=== PATIENT | male | born 1960 | race Caucasian/White ===

== ENCOUNTER → 2017-01-15 | Outpatient (CLI) | payer OTHER ==
[~2017-01-15] MED LIST: GADOBUTROL 10 ML VIAL IVP ONE
== END ==
LOC: FIMAGING 06:55
PROVIDERS: ATTEND Urology
DX: R97.20 Elevated prostate specific antigen [PSA] (principal); R31.9 Hematuria, unspecified
CPT/HCPCS: A9585

== ENCOUNTER 2017-08-22 05:43 | Inpatient (IN) | payer SELFPAY ==
[2017-08-22] MEDS ORDERED: cefOXitin SODIUM 2 GM in NS 100 ML IV ONE (06:32)
[2017-08-22] MEDS ORDERED: LR 1,000 ML IV ONE (06:32)
[2017-08-22] MEDS ORDERED: fentaNYL 100 MCG/2 ML INJ ONE ×3 (07:11→12:02)
[2017-08-22] MEDS ORDERED: MIDAZOLAM 2 MG/2 ML VIAL ONE (07:11)
[2017-08-22] MEDS ORDERED: PROPOFOL/EMULSION 500 MG/50 ML BOTTLE IV ONE ×2 (07:12→07:23)
[2017-08-22] MEDS ORDERED: BUPIVACAINE/EPI 0.5% 30 ML SDV ONE (07:14)
[2017-08-22] MEDS ORDERED: DEXMEDETOMIDINE HCL 200 MCG/2 ML VIAL IV ONE (07:15)
[2017-08-22] MEDS ORDERED: DEXAMETHASONE 4 MG/ML VIAL ONE (07:25)
[2017-08-22] MEDS ORDERED: METOCLOPRAMIDE 10 MG/2 ML VIAL ONE (07:25)
[2017-08-22] MEDS ORDERED: ROCURONIUM 100 MG/10 ML VIAL ONE (07:25)
[2017-08-22] MEDS ORDERED: ONDANSETRON 4 MG/2 ML VIAL ONE (07:25)
[2017-08-22] MEDS ORDERED: RANITIDINE 50 MG/2 ML VIAL ONE (07:25)
[2017-08-22] MEDS ORDERED: KETOROLAC 30 MG/1 ML SDV ONE (07:25)
[2017-08-22] MEDS ORDERED: LIDOCAINE 2% 5 ML SDV ONE (07:25)
--- NOTE | 2017-08-22 07:30 | PDHPUP ---
History & Physical Update H&P update statement: This history and physical update is based on an assessment of the patient which was completed after admission or registration (within 24 hours), but prior to the surgery/procedure. H&P update: no change in patient's condition since H&P completed
--- NOTE | 2017-08-22 08:00 | PDANEPAE ---
ANE Past Medical History - Cardiovascular History Hx Hypertension: No Hx Arrhythmias: No Hx Chest Pain: No Hx Coronary Artery / Peripheral Vascular Disease: No Hx CHF / Valvular Disease: No Hx Palpitations: No - Pulmonary History Hx COPD: No Hx Asthma/Reactive Airway Disease: No Hx Recent Upper Respiratory Infection: No Hx Oxygen in Use at Home: No Hx Sleep Apnea: No Sleep Apnea Screening Result - Last Documented: Negative - Neurologic History Hx Cerebrovascular Accident: No Hx Seizures: No Hx Dementia: No - Endocrine History Hx Diabetes: No - Renal History Hx Renal Disorders: Yes Renal History Comment: HX OF STONES - Liver History Hx Hepatic Disorders: No - Neurological & Psychiatric Hx Hx Neurological and Psychiatric Disorders: No - Cancer History Hx Cancer: Yes Cancer History Comment: PROSTATE - Congenital Disorder History Hx Congenital Disorders: No - Other Health History Other Health History: GENITAL WARTS. DVT POST INJURY 02/2013 - Chronic Pain History Chronic Pain: Yes (LT SIDE WHILE SITTING) - Surgical History Prior Surgeries: RT ING HERNIA. REMVL KIDNEY STONE 09/2016 IN [place]. JANEL KNEE SCOPE ANE Review of Systems Review of Systems: - Exercise capacity METS (RN): 6 METS ANE Patient History - Allergies Allergies/Adverse Reactions: No Known Allergies Allergy (Unverified 03/12/13 18:27) - NPO status NPO Since - Liquids (Date): 08/21/17 NPO Since - Liquids (Time): 23:00 NPO Since - Solids (Date): 08/21/17 NPO Since - Solids (Time): 11:30 - Smoking Hx Smoking Status: Never smoked - Family Anes Hx Family Hx Anesthesia Complications: NEG ANE Labs/Vital Signs - Vital Signs Blood Pressure: 161/91 Heart Rate: 52 Respiratory Rate: 15 O2 Sat (%): 96 Height: 182.88 cm Weight: 69.853 kg ANE Physical Exam - Airway Mallampati Score: Class 1 Mouth exam: normal dental/mouth exam - Pulmonary Pulmonary: no respiratory distress, no rales or rhonchi, clear to auscultation - Cardiovascular Cardiovascular: regular rate and rhythym, no murmur, rub, or gallop - ASA Status ASA Status: II ANE Anesthesia Plan Anesthesia Plan: general endotracheal anesthesia
[2017-08-22] MEDS ORDERED: SUGAMMADEX SODIUM 200 MG/2 ML VIAL IVP ONE (09:16)
[2017-08-22] MEDS ORDERED: GLYCOPYRROLATE 0.2 MG/1 ML VIAL ONE (09:16)
[2017-08-22] MEDS ORDERED: THROMBIN(HUM PLAS)/FIBRINOG/CA 5 ML VIAL TP ONE (09:16)
[2017-08-22] MEDS ORDERED: ROCURONIUM 50 MG/5 ML VIAL ONE (09:59)
[2017-08-22] MEDS ORDERED: PROMETHAZINE HCL 25 MG/ML INJ IVP PRN ×2 (10:34→11:04)
[2017-08-22] MEDS ORDERED: ALBUTEROL 3 ML DEYVIAL IH PRN (10:34)
[2017-08-22] MEDS ORDERED: DEXAMETHASONE 4 MG/ML VIAL IVP PRN (10:34)
[2017-08-22] MEDS ORDERED: LR 500 ML IV PRN (10:34)
[2017-08-22] MEDS ORDERED: ONDANSETRON 4 MG/2 ML VIAL IVP PRN ×2 (10:34→11:04)
[2017-08-22] MEDS ORDERED: NALOXONE HCL 0.4 MG/ML INJ IVP PRN ×2 (10:34→22:15)
[2017-08-22] MEDS ORDERED: METOCLOPRAMIDE 10 MG/2 ML VIAL IVP PRN (10:34)
[2017-08-22] MEDS ORDERED: MEPERIDINE 25 MG/0.5 ML AMP IVP PRN (10:34)
--- NOTE | 2017-08-22 11:02 | POSTOPPROG ---
Post Op Note Date of Operation: 08/22/17 Surgeon: Fabi Aquino (# [id number]) [place] Supervisor: Patti Ohara Anesthesia: GET(General Endotracheal) Pre-op Diagnosis: Prostate cancer Post-op Diagnosis: Prostate cancer Procedure: Robotic radical prostatectomy Findings: See op note Inf/Abcess present in the surg proc area at time of surgery?: No EBL: 50-100 (50 cc) Complications: None Drains: Yahir Mejia (10 Flat) Specimen(s): Prostate + SV's
[2017-08-22] MEDS ORDERED: LIDOCAINE 2% JELLY 5 ML TUBE TP PRN (11:04)
[2017-08-22] MEDS ORDERED: KETOROLAC 30 MG/1 ML SDV IVP ONE (11:04)
[2017-08-22] MEDS: fentaNYL 100 MCG/2 ML INJ IVP PRN ×4 (11:20→12:03)
--- NOTE | 2017-08-22 11:50 | POSTANESTH ---
Post Anesthetic Evaluation Cardiovascular Status: Normal, Stable, Similar to Pre-Op Cond Respiratory Status: Normal, Stable, Similar to Pre-op Cond. Level of Consciousness/Mental Status: Unconscious Pain Control: Adequate, Prn Tx Ordered Nausea/Vomiting Control: Adequate, Prn Tx Ordered Complications Possibly Related to Anesthesia: None Noted
--- NOTE | 2017-08-22 12:18 | GOP ---
[f rep st] OPERATIVE REPORT DATE OF OPERATION: 08/22/2017 SURGEON: Fabi Aquino MD BUSINESS OBJECTS DEVELOPER: Jessica Ohara CFA. ANESTHESIA: General endotracheal. PREOPERATIVE DIAGNOSIS: Prostate adenocarcinoma. POSTOPERATIVE DIAGNOSIS: Prostate adenocarcinoma. PROCEDURE PERFORMED: Robotically-assisted laparoscopic radical prostatectomy. FINDINGS: Grossly organ-confined prostate cancer. SPECIMENS: Prostate with seminal vesicles. ESTIMATED BLOOD LOSS: Approximately 50 cc. INDICATIONS: This gentleman was found to have prostate adenocarcinoma. He has opted for radical prostatectomy as definitive therapy. The indications for the procedures, as well as potential risks and complications were discussed with the patient preoperatively. He appeared to understand, his questions were answered, and he wished to proceed. Written informed surgical consent was thereafter obtained. DESCRIPTION OF PROCEDURE: The patient was brought to the operating room and administered general endotracheal anesthesia. He was carefully placed in the low lithotomy position on the operating room table with Garfield stirrups. The abdomen and genitalia were sterilely prepped and draped in standard fashion utilizing Ioban. An 18-Honduran Mendoza catheter was placed without complication to bag drainage and left sterilely on the field. Intraabdominal access was gained in the midline, just above the umbilicus, with a Veress needle. The abdomen was insufflated to 15 mmHg which was the pressure maintained throughout the remainder of the case. A 12 mm laparoscopic port was placed at this location. The abdomen was carefully inspected with a 12 mm 0 degree robotic camera. No significant intraabdominal abnormalities were appreciated. My remaining port sites were then marked, which were as follows: An 8 mm robotic port placed approximately 2.5 cm below the umbilicus and 12 cm lateral to the midline in the left lower quadrant, an 8 mm robotic port placed in the right lower quadrant 2.5 cm below the umbilicus and 7.5 cm lateral to the midline, a third 8 mm robotic port placed 8 cm lateral to the right lower quadrant port and nearly in the same transverse line as the umbilicus, and 12 mm assistant attorney general port placed in the left upper quadrant along the lateral edge of the rectus muscle below the costal margin. All these ports were placed under direct vision without complication. The patient was then placed in approximately 27 degree Trendelenburg position. The robot was docked between the patient's legs. The appropriate robotic arms were connected to the respective ports. The 0 degree 12 mm robotic camera was used throughout the case. I then left the patient's bedside and entered the surgeon's robotic console. He had a few adhesions between the mesentery and the left lower quadrant anterior abdominal wall. These were sharply divided with monopolar scissors. The pelvis was carefully inspected. The prerectal space could be easily visualized. An incision was made through the posterior peritoneum in the prerectal space in a transverse fashion approximately 1.5-2 cm above the rectum in the midline. A gentle spreading motion was used to identify the location of the seminal vesicles and the vas deferens through this incision. These structures were carefully dissected free from the surrounding structures. The tips to the seminal vesicles were ligated with Hem-O-darrel clips bilaterally. The vas deferens were transected with monopolar scissors, approximately 3 cm from their insertion into the base of the prostate. Once the seminal vesicles and vas deferens were free, a transverse incision was made through Denonvilliers fascia, just posterior to the prostate in the midline, and this incision was carried bilaterally. I gently and bluntly dissected the prostate anteriorly from the rectum posteriorly as far towards the prostatic apex as possible. This completed the posterior dissection. Hemostasis was confirmed posteriorly at this point. I then turned my attention to the anterior dissection. The anterior peritoneum was incised lateral to the obliterated umbilical ligaments high along the anterior abdominal wall. This incision through the peritoneum was carried in a cephalad fashion back to the intersection with the vas deferens and spermatic cord bilaterally. The lateral pelvic spaces were then gently developed bluntly until the endopelvic fascia was seen bilaterally. The obliterated umbilical ligaments were then ligated with bipolar cautery and divided with scissors bilaterally. This incision through the obliterated umbilical ligament ligaments was connected in the midline with a transverse incision through the anterior peritoneum. This allowed entrance into the retropubic space of Retzius. The bladder was then dropped. Once the endopelvic fascia was identified bilaterally, an incision was made through it along the mid aspect of the prostate laterally with scissors. This incision through the endopelvic pelvic fascia was carried upwards towards the prostatic apex and back towards the prostatic base while staying lateral to the prostate. The levator ani muscles were carefully teased off the prostate with gentle blunt dissection bilaterally. The dorsal vein complex was then carefully dissected and visualized. The puboprostatic ligaments above the dorsal vein were transected sharply with scissors. An 0 Vicryl stick tie was then used to ligate the dorsal vein complex while staying distal to the prostatic apex and above the urethra. A slip knot technique was utilized. Two separate 0 Vicryl sutures were utilized at this location. I then turned my attention to the bladder neck dissection. The location of the bladder neck was visualized. Using monopolar scissors dissection, I then began my anterior dissection of the prostate off the anterior bladder. I continued this dissection laterally and more deeply until the bladder neck was visualized. I attempted to perform a bladder neck sparing dissection while not compromising the cancer aspect of the operation. The previously placed catheter was then visualized after transecting the anterior urethra and was pulled up in order to visualize the back wall of the urethra, which was then transected as well. I then continued my dissection further posteriorly until the previously dissected seminal vesicles and vas deferens were identified. They were pulled up anteriorly. I then continued to dissect the base of the prostate off the posterior bladder bilaterally. The rectum was then carefully mobilized with gentle blunt dissection out of harm's way all the way to the level of the prostatic apex. I then performed the left lateral prostatic dissection next. A fairly aggressive nerve-sparing procedure was performed on this left side with cold scissors dissection. The left prostatic pedicle was then ligated with a series of Hem O Darrel clips and divided with scissors. The remaining prostatic attachments along the left lateral aspect were then dissected free from the pelvic fascia to the level of the prostatic apex. I then turned my attention to dissecting the right side. A less aggressive nerve-sparing procedure was performed on this side due to the extent of cancer being present in the right base and mid gland, with perineural invasion noted on preoperative biopsies at the right base. I did perform an interfascial nerve -sparing procedure on this side using cold scissors dissection. The prostatic pedicle was then ligated with a series of Hem O lock clips and divided with scissors. The remaining posterior attachments were then mobilized with gentle blunt dissection on this right side to keep the rectum out of harm's way. Any remaining lateral attachments between the prostate and the pelvic fascia were then ligated with scissors dissection up to the level of the prostatic apex. The apical dissection was then performed with monopolar scissors dissection. The urethra was identified and as much length to the urethra was spared as possible while not compromising the apical margin. After transecting the urethra, the underlying rectourethralis muscle was divided sharply with scissors. The prostate was then completely free and placed in the upper abdomen to be later retrieved in a specimen bag. It should be noted there was no obvious gross extraprostatic extension of cancer identified. There was some bleeding noted from the dorsal vein complex at this point, and this was ligated successfully with an additional 0 Vicryl stick tie while staying above the urethra. The posterior plate was then reconstructed with a running 3-0 Vicryl V -Loc suture by approximating the rectourethralis muscle at the level of the urethral stump to the vesicovisceral fascia along the posterior bladder. Once this was completed, the vesicourethral anastomosis was completed with a running 3-0 Monocryl double-armed suture. This was done in a gukniy-xe-huhxni approximating fashion. Once the anastomosis was completed, a new 18-Honduran Mendoza catheter was placed in the bladder and 20 cc of sterile water was placed in the balloon. The catheter was then irrigated and no significant clots were seen within the bladder. There was no fluid leakage seen from the anastomosis either. The intraabdominal pressure was then temporarily decreased to 5 mmHg and no bleeding was identified. Nonetheless, I did place some Evicel over the ligated dorsal vein complex, as well as the regions of the neurovascular bundles bilaterally. A 10 mm specimen bag was then used to secure the specimen and it was ultimately brought out through the supraumbilical midline port. A 10 flat Yahir-Mejia drain was placed in the pelvis and brought out through the left lower quadrant robotic port site. It was ultimately secured to the skin with a 2-0 silk suture and connected to bulb suction. This completed the robotic portion of the procedure. I did not feel that pelvic lymphadenectomy was necessary due to the patient's preoperative Nina 3 + 3 cancer that was stage T1c with a PSA less than 10. I then returned to the patient's bedside. The anterior rectus fascia at the location of the 12 mm assistant attorney general port site was reapproximated with an 0 Vicryl suture and the fascial closure device. All the remaining ports were then removed. The supraumbilical incision was extended slightly in order to allow for delivery of the prostate within the specimen bag. The anterior rectus fascia at this location was then reapproximated in a transverse running fashion with 0 Vicryl suture. All the incisions were anesthetized with a total of 30 cc of 0.5% Marcaine with epinephrine. The skin edges were then reapproximated with a running 4-0 Monocryl suture in a subcuticular fashion. A Biopatch followed by Tegaderm were placed along the SONIYA site. The catheter was kept to bag drainage. The patient was awakened, extubated, transferred to his bed, then taken to the recovery room. He tolerated the procedure well overall. COMPLICATIONS: None. DISPOSITION: He was transferred to the recovery room in stable condition. /[id number]/MODL MTDD
--- NOTE | 2017-08-22 13:46 | PDMN ---
Medical Necessity Medical necessity: [facility] [place]; S960 prostatectomy, radical 1 day INPT only : Robotic assist Lap radical prostatectomy
[2017-08-22] MEDS: D5W 1/2 NS 1,000 ML IV SCH (14:51)
[2017-08-22] MEDS: cefOXitin SODIUM 2 GM in NS 100 ML IV SCH (18:44)
[2017-08-22] MEDS: KETOROLAC 15 MG/1 ML SDV IVP SCH (18:45)
[2017-08-22] MEDS ORDERED: HYDROmorphONE/DILAUDID 6 MG/30 ML PCA IV PRN (22:15)
[2017-08-23] MEDS: cefOXitin SODIUM 2 GM in NS 100 ML IV SCH ×3 (00:04→13:29)
[2017-08-23] MEDS: KETOROLAC 15 MG/1 ML SDV IVP SCH ×4 (00:05→20:04)
[2017-08-23] MEDS: D5W 1/2 NS 1,000 ML IV SCH ×2 (00:05→08:32)
--- NOTE | 2017-08-23 09:32 | SOAPPROG ---
SOAP Progress Note Assessment/Plan: Assessment: POD 1 s/p robotic radical prostatectomy - doing well. Plan: 1. Continue postop care. 2. Possible d/c home later today. Subjective: No complaints except for some abdominal spasms. Tolerated CLD this AM. Objective: Vital Signs Temp Pulse Resp BP Pulse Ox 36.6 C 56 L 16 145/85 H 95 08/23/17 07:48 08/23/17 07:48 08/23/17 07:48 08/23/17 07:48 08/23/17 07:48 Laboratory Results 08/23/17 04:02 08/23/17 04:02 08/22/17 08/23/17 08/24/17 05:59 05:59 05:59 Intake Total 2505 Output Total 1420 Balance 1085 Physical Exam - Physical Exam General Appearance: WD/WN, alert, no apparent distress Abdomen: soft (minimally tender; incisions c/d/i; minimal distention) Male Genitalia: other (urine clearing via Mendoza) Skin: normal color, warm/dry Extremities: non-tender, normal inspection Neuro/Psych: alert, normal mood/affect, oriented x 3 ICD10 Worksheet Patient Problems: Problems Problem Status Onset Prostate cancer Acute
--- NOTE | 2017-08-23 11:21 | ASMTCMCOM ---
CM Note CM Note Notes: CM reviewed chart for D/C planning. Pt is a 56 y/o male who was hospitalized due to needing a radical prostatectomy. He will possibly be d/c'ed later today.Pt lived independently prior to admission. No CM needs anticipated. CM will follow in case needs change. D/C Plan: Independent Date Signed: 08/23/2017 11:20 AM Electronically Signed By:Elena Garcia
[2017-08-23] MEDS: HYDROCODONE/APAP 5/325 TAB PO PRN ×2 (15:45→21:30)
[2017-08-24] MEDS: KETOROLAC 15 MG/1 ML SDV IVP SCH (01:19)
[2017-08-24] MEDS: HYDROCODONE/APAP 5/325 TAB PO PRN ×2 (05:55→13:07)
--- NOTE | 2017-08-24 08:18 | SOAPPROG ---
SOMARBELLA Progress Note Assessment/Plan: Assessment: Prostate cancer s/p robotic radical prostatectomy Plan: 08/24/17 08:17 Patient is doing much better and is ready for discharge. Subjective: Pt feels much better, has been walking and having flatus. Pain is minimal. Objective: Vital Signs Temp Pulse Resp BP Pulse Ox 36.5 C 52 L 16 137/76 H 93 08/24/17 05:19 08/24/17 05:19 08/24/17 05:19 08/24/17 05:19 08/24/17 05:19 Laboratory Results 08/23/17 04:02 08/23/17 04:02 08/23/17 08/24/17 08/25/17 05:59 05:59 05:59 Intake Total 2505 1100 Output Total 1420 2665 Balance 1085 -1565 Physical Exam - Physical Exam General Appearance: no apparent distress Abdomen: normal bowel sounds, non-tender, soft ICD10 Worksheet Patient Problems: Problems Problem Status Onset Prostate cancer Acute
[2017-08-24 08:23] VITALS: BP 144/89
--- NOTE | 2017-08-24 09:27 | ASDISCHSUM ---
Discharge Information Plan Status:Home with No Needs Medically Cleared to Leave:08/24/2017 Discharge Date:08/24/2017 CM D/C Disposition:Home, Routine, Self-Care ADT D/C Disposition:Home, Routine, Self-Care Projected Discharge Date:08/24/2017 Transportation at D/C: Discharge Delay Reason: Follow-Up Date:08/24/2017 Discharge Slot: Final Diagnosis: Placement Information Patient Contact Information Contact Name:JOEL Relationship: Address: Work Phone: City: [facility] Phone: State/[place] Code: Email: Financial Information Financial Class:Self-Pay Primary Plan Desc:SELF PAY Primary Plan Number: Secondary Plan Desc: Secondary Plan Number: Assessment Information LACE LACE Length of stay for Answers: 2 days current admission Acuity / Level of Answers: Yes Care: Did the patient have an inpatient admission? Comorbidities - select Answers: Any tumor (including all that apply lymphoma or leukemia) Opioid dependence / Chronic pain # of Emergency department Answers: 0 visits in the last 6 months Score: 11 Date Signed: 08/24/2017 09:25 AM Electronically Signed By:Anabel Horan RN [facility] CM Progress Note CM Note CM Note Notes: CM reviewed chart for D/C planning. Pt is a 56 y/o male who was hospitalized due to needing a radical prostatectomy. He will possibly be d/c'ed later today.Pt lived independently prior to admission. No CM needs anticipated. CM will follow in case needs change. D/C Plan: Independent Date Signed: 08/23/2017 11:20 AM Electronically Signed By:Elena Garcia Case Management Discharge Plan Note Case Management Discharge Discharge Order Complete? Answers: Yes Patient to Obtain Answers: Independently Medications Discharge Comments Notes: 08/24/2017 Case Management Note Pt to discharge independent with follow up as directed. Date Signed: 08/24/2017 09:25 AM Electronically Signed By:Anabel Horan RN Intervention Information
--- NOTE | 2017-08-27 07:49 | GDS ---
[f rep st] DISCHARGE SUMMARY DISCHARGE PHYSICIAN: Fabi Aquino MD REASON FOR ADMISSION: Prostate cancer. HISTORY OF PRESENT ILLNESS: The patient is a 56-year-old gentleman with history of prostate cancer. He was admitted for a robotic-assisted radical prostatectomy. Postoperatively, he was admitted for observation. HOSPITAL COURSE: The patient did well overall; however, he is by himself and was not ambulating suff iciently for discharge on postoperative day #1; however, over the 2nd hospital day, the patient was d oing much better. He was tolerating a regular diet, having flatus, walking outside without too much pain. He was having no fevers or chills, and at this point, was felt ready for discharge. DISCHARGE MEDICATIONS: Include: Reserve and Cipro to be taken prior to catheter removal. DISCHARGE INSTRUCTIONS: 1. He is to limit vigorous activities. 2. He has a followup appointment with Dr. Aquino's office for catheter removal. COMPLICATIONS: There were no complications during this hospital stay. /[id number]/MODL
== END 2017-08-24 13:42 | disposition home or self-care (01) | DRG 708 ==
LOC: F3N 05:43 → F1N 12:26
PROVIDERS: ADMIT Specialist; ATTEND Specialist
DX: C61 Malignant neoplasm of prostate (principal); A63.0 Anogenital (venereal) warts
CPT/HCPCS: J0694; J1100; J1170; J1885; J2250; J2270; J2405; J2704; J2765; J2780; J3010